=== PATIENT | female | born 1985 | race Caucasian/White ===

== ENCOUNTER 2018-11-08 20:01 | Emergency (ER) | payer BC ==
[~2018-11-08] VITALS: Ht 152.4 cm; Wt 54.4 kg
[2018-11-08] MEDS ORDERED: NORCO 7.5-3251 EACH PO (21:02)
[2018-11-08 21:34] VITALS: BP 153/139
== END 2018-11-08 21:34 | disposition home or self-care (01) ==
LOC: M.ERS 20:01 → EDBD 20:01 → M.ERS 21:34
DX: S82.141A Displaced bicondylar fracture of right tibia, initial encounter for closed fracture (principal); Z87.442 Personal history of urinary calculi; Z88.6 Allergy status to analgesic agent; V29.69XA Unspecified motorcycle rider injured in collision with other motor vehicles in traffic accident, initial encounter; Y93.89 Activity, other specified; Y92.413 State road as the place of occurrence of the external cause; Y99.8 Other external cause status

== ENCOUNTER → 2018-11-26 | Outpatient (CLI) | payer BC ==
[~2018-11-26] MED LIST: FLEXERIL PO; NORCO 7.5-3251 EACH PO
== END ==
LOC: M.MRI 16:47
DX: S82.144A Nondisplaced bicondylar fracture of right tibia, initial encounter for closed fracture (principal); S82.124A Nondisplaced fracture of lateral condyle of right tibia, initial encounter for closed fracture; V86.99XA Unspecified occupant of other special all-terrain or other off-road motor vehicle injured in nontraffic accident, initial encounter; Y93.89 Activity, other specified; Y92.89 Other specified places as the place of occurrence of the external cause; Y99.8 Other external cause status

== ENCOUNTER 2018-12-01 09:28 | Emergency (ER) | payer BC ==
[~2018-12-01] VITALS: Ht 157.5 cm; Wt 59.0 kg
[~2018-12-01 09:28] MED LIST changes: -FLEXERIL PO
[2018-12-01] MEDS ORDERED: FLEXERIL PO (11:12)
[2018-12-01 11:26] VITALS: BP 101/56
== END 2018-12-01 11:26 | disposition home or self-care (01) ==
LOC: M.ERS 09:28
DX: S01.511A Laceration without foreign body of lip, initial encounter (principal); S80.212A Abrasion, left knee, initial encounter; S50.812A Abrasion of left forearm, initial encounter; Z87.442 Personal history of urinary calculi; Z88.8 Allergy status to other drugs, medicaments and biological substances; V49.49XA Driver injured in collision with other motor vehicles in traffic accident, initial encounter; Y93.89 Activity, other specified; Y92.89 Other specified places as the place of occurrence of the external cause; Y99.8 Other external cause status